=== PATIENT | male | born 1990 | race Hispanic/Latino ===

== ENCOUNTER 2018-08-25 19:06 | Emergency (ER) | payer SELFPAY ==
[2018-08-25 19:27] LABS: Base Excess-Venous -1.7 mmol/L (-2.0 to 3.0); Bicarbonate (HCO3v) 22.2 mmol/L (22.0-28.0); CO2 Tension (PvCO2) 34.8 mmHg (40.0-50.0); Calcium, Ionized 1.11 mmol/L (See Comments:); Chloride 107 mmol/L (98-107); O2 Tension (PvO2) 92.5 mmHg (35.0-45.0); Sodium 141 mmol/L (138-145); T. Carbon Dioxide 23.3 mmol/L (22.0-28.0); pH (Venous) 7.413 (7.320-7.430); vO2 Saturation-calc 97.4 % (60.0-85.0)
[2018-08-25 19:45] LABS: #Eosinphils 0.1 thou/uL (0.0-0.7); #Monocytes 0.5 thou/uL (0.11-0.59); #Neutrophils 9.3 thou/uL (1.40-6.50); %Basophils 0.3 % (0.0-1.0); %Eosinophils 0.5 % (0.0-10.0); %Lymphocytes 16.5 % (21.0-51.0); %Monocytes 4.1 % (0.0-10.0); %Neutrophils 78.6 % (42.0-75.0); Hemoglobin 15.6 g/dL (14.0-18.0); Mean Corpuscular HGB CONC 33.8 g/dL (32.0-36.0); Mean Corpuscular Hemoglobin 29.5 pg (27.0-31.0); Mean Corpuscular Volume 87.2 fL (78.0-98.0); Mean Platelet Volume 9.8 fL (7.4-10.4); Platelet Count 232 thou/uL (130-400); RBC Distribution Width 11.9 % (11.5-14.5); Red Blood Cell (RBC) Count 5.28 mill/uL (4.70-6.10); White Blood Cell (WBC) Count 11.8 thou/uL (4.8-10.8)
[2018-08-25] MEDS ORDERED: Albuterol Sulfate 2.5 mg/3 ml Neb ONE (19:57)
[2018-08-25 20:03] LABS: ALT (SGPT) 23 U/L (8-55); AST (SGOT) 22 U/L (5-34); Albumin 4.9 g/dL (3.5-5.0); Alkaline Phosphatase 101 U/L (40-150); Anion Gap 17 mmol/L (10-20); BUN (Urea Nitrogen) 12 mg/dL (8.9-20.6); Bilirubin, Total 0.5 mg/dL (0.2-1.2); Calc. Creatinine Clearance 0 mL/min (70-130); Carbon Dioxide 23 mmol/L (22-29); Chloride 103 mmol/L (98-107); Estimated GFR-MDRD 84; Globulin 3.4 g/dL (2.4-3.5); Glucose 103 mg/dL (70-105); Potassium 3.1 mmol/L (3.5-5.1); Protein, Total 8.3 g/dL (6.0-8.3); Sodium 140 mmol/L (136-145)
[2018-08-25] MEDS ORDERED: Ketorolac Tromethamine 30 MG/ML VIAL ONE (20:10)
--- NOTE | 2018-08-25 20:40 | RAD ---
PORTABLE AP CHEST X-RAY 08/25/18 HISTORY: Asthma, dyspnea. COMPARISON: None available. FINDINGS: The cardiac silhouette and pulmonary vasculature are within normal limits. The lungs are clear. No pl eural effusion or pneumothorax is seen. Osseous structures are intact. IMPRESSION: No acute cardiopulmonary process. POS: [id number]
== END 2018-08-25 21:56 | disposition home or self-care (01) ==
LOC: ERS 19:06
DX: J45.901 Unspecified asthma with (acute) exacerbation (principal)
CPT/HCPCS: 71045; 80053; 82330; 82803; 83880; 84484; 85025; 85379; 87081; 87430; 87804; 93005; 94640; 96374; 96375; J1885; J7611